=== PATIENT | male | born 1965 | race Caucasian/White ===

== ENCOUNTER 2020-09-26 21:47 | Emergency (ER) | payer OTHER ==
--- NOTE | 2020-09-27 00:05 | CR ---
HISTORY: Pain after softball injury. COMPARISON: None available. FINDINGS: The left hand is examined with PA, lateral, and oblique views. There is no sign of fracture or dislocation. There is moderate diffuse swelling of the hand overlying the metacarpals with no sign of any fracture. There is no sign of radio-opaque foreign body. No degenerative disease is seen. IMPRESSION: No sign of acute osseous injury. Moderate soft tissue swelling overlying the metacarpals with no sign of associated fracture. Dictated by Ariel Dos Santos MD @ 09/27/2020 12:03:[address] Ariel Dos Santos @ Sep 27 2020 12:03AM
--- NOTE | 2020-09-27 00:13 | EDM.PDOC ---
ED HPI GENERAL MEDICAL PROBLEM - General Chief Complaint: Upper Extremity Injury/Pain Stated Complaint: LEFT HAND STRUCK BY A SOFT BALL Time Seen by Provider: 09/26/20 22:18 - History of Present Illness INITIAL COMMENTS - FREE TEXT/NARRATIVE: CHIEF COMPLAINT(S): Hand pain HISTORY OF PRESENT ILLNESS: This is a 54-year-old man without any significant past medical who comes to the emergency department with a chief complaint of story hand pain. The patient states that approximately 2 days ago he was hit by a softball onto his left hand and is experiencing some pain along the index knuckle area. He states that he did not think anything of it and has not tried anything at home. He states that it started to swell and then the whole backside of his hand started to swell. He states that he is experiencing pain particularly on the knuckle of the left index finger. He rates his pain as 4 out of 10 without any radiation. He states that he is able to fully flex and extend all of his fingers on his left hand. He denies any thumb pain. He denies any aggravating factors other than touching it and there are no relieving factors. States that he is mainly concerned about a fracture as he wants to go to [place]. REVIEW OF SYSTEMS: Skin:Denies a rash MSK: Positive for left knuckle pain Neurological: Denies numbness, tingling, weakness PAST MEDICAL HISTORY: As per history of present illness and as reviewed below otherwise noncontributory. SURGICAL HISTORY: As per history of present illness and as reviewed below otherwise noncontributory. SOCIAL HISTORY: As per history of present illness and as reviewed below otherwise noncontributory. FAMILY HISTORY: As per history of present illness and as reviewed below otherwise noncontributory. EXAMINATION OF ORGAN SYSTEMS/BODY AREAS: Constitutional: Blood pressure is 146/86, heart rate 85, respiratory rate 18 with an oxygen saturation 95% on room air. Temperature 36.7 General: Overall well-appearing man who is in no acute distress Psychiatric: Appropriate mood and affect. Eyes: No scleral icterus or conjunctival erythema Cardiovascular: Regular, rate, and rhythm. No gallops, murmurs, or rubs. Bilateral upper extremity pulses symmetric and intact. Respiratory: Lungs clear to auscultation bilaterally. No wheezes, rales, or rhonchi. Musculoskeletal: Normal range of motion. No obvious deformity of the left hand there is swelling to the posterior aspect of the left hand. No anatomical snuffbox tenderness. Patient is able to make an O with his thumb and index finger and able to touch all of his fingers with his thumb. On the left hand Skin: No lesions or abrasions. Neurological: Alert, GCS 15 distal sensation is intact. MEDICAL DECISION MAKING AND COURSE IN THE ED WITH INTERPRETATION/REVIEW OF DIAGNOSTIC STUDIES: This is a 54-year-old man without any significant past medical history who comes to the emergency department with left knuckle pain on the left hand with some dorsal swelling who has full range of motion is neurovas cularly intact. Will obtain a left hand x-ray. At this time I did offer the patient pain medication however he states that he feels fine. No other labs or imaging are indicated. There is no laceration therefore no tetanus will be updated. The radiological images were viewed by myself along with reading the report from the radiologist. Left hand x-ray does not reveal any fracture or dislocation. After imaging I discussed the results with the patient. At this time I did discuss symptomatic treatment at home. He is to follow-up with his primary care physician. He was given strict return precautions. They were amenable to discharge and had no further questions. DISPOSITION: The patient was discharged home in stable condition. The patient will follow up with primary care physician in 3 to 5 days CONDITION: Good PROCEDURES: None FINAL IMPRESSION(S)/DIAGNOSES: 1. Acute left hand soft tissue injury Narayan Pederson M.D. Left Lower Wrist Pain Score (Numeric/FACES): 4 - Related Data Allergies Allergy/AdvReac Type Severity Reaction Status Date / Time No Known Allergies Allergy Verified 09/26/20 23:27 Home Meds: Home Meds Telmisartan 80 mg PO DAILY 09/26/20 [History] hydroCHLOROthiazide [Hydrochlorothiazide] 25 mg PO DAILY 09/26/20 [History] Past Medical History HEENT History: Reports: None Cardiovascular History: Reports: Hypertension Respiratory History: Reports: None Gastrointestinal History: Reports: None Genitourinary History: Reports: Renal Calculus Musculoskeletal History: Reports: None Neurological History: Reports: None Psychiatric History: Reports: None Endocrine/Metabolic History: Reports: None Hematologic History: Reports: None Immunologic History: Reports: None Oncologic (Cancer) History: Reports: None Dermatologic History: Reports: None - Infectious Disease History Infectious Disease History: Reports: Chicken Pox, Measles, Mumps - Past Surgical History Head Surgeries/Procedures: Reports: None HEENT Surgical History: Reports: None Cardiovascular Surgical History: Reports: None Respiratory Surgical History: Reports: None GI Surgical History: Reports: None Male Surgical History: Reports: None Endocrine Surgical History: Reports: None Neurological Surgical History: Reports: None Musculoskeletal Surgical History: Reports: None Oncologic Surgical History: Reports: None Dermatological Surgical History: Reports: None Social & Family History - Family History Family Medical History: No Pertinent Family History - Tobacco Use Tobacco Use Status *Q: Never Tobacco User - Caffeine Use Caffeine Use: Reports: None - Recreational Drug Use Recreational Drug Use: No Review of Systems - Review of Systems Review Of Systems: See Below ED EXAM, GENERAL - Physical Exam Exam: See Below Course - Vital Signs Last Recorded V/S: Last Vital Signs Temp 36.7 C 09/26/20 23:31 Pulse 85 09/26/20 23:31 Resp 18 09/26/20 23:31 BP 146/86 H 09/26/20 23:31 Pulse Ox 95 09/26/20 23:31 Departure - Departure Time of Disposition: 00:12 Disposition: Home, Self-Care 01 Condition: Fair Clinical Impression: Left hand pain - Discharge Information *PRESCRIPTION DRUG MONITORING PROGRAM REVIEWED*: No *COPY OF PRESCRIPTION DRUG MONITORING REPORT IN PATIENT SAURABH: No Instructions: Hand Pain Referrals: Kenny Ross MD [Primary Care Provider] - Forms: ED Department Discharge Additional Instructions: You were evaluated today on an emergent basis. At this time your imaging not reveal any fractures. At this time I do recommend that she use Tylenol and Motrin for pain relief and keep the area elevated and use ice to decrease swelling. If you have any worsening symptoms I would like you to return to the emergency department. Otherwise follow-up with your primary care physician in 3 to 5 days. Please use: Tylenol 500-1000mg every 6 hours (DO NOT TAKE MORE THAN 4000mg in 1 day) Ibuprofen 400mg every 6 hours (Take with food as it can cause ulcers, GI upset) Example schedule: 8:00 AM (Tylenol 500-1000mg) 11:00 AM (Ibuprofen 400mg) 2:00 PM (Tylenol 500-1000mg) 5:00 PM (Ibuprofen 400mg) In addition to Tylenol and Motrin you may use over the counter creams such as Voltaren Cream or Lidocaine Cream (Lidoderm) as needed 4 times a day for symptomatic relief. Ice the area 20 minutes 4 times per day [facility] [address] [place] [address] [facility] [address] [place] [id number] The patient is informed of any results of their evaluation and diagnostic workup and all questions are answered. They are given discharge instructions and return precautions. The patient is stable for discharge. The patient states they understand and agree with the plan and that they will return if their symptoms get worse or if they have any new concerns. The following information is given to patients seen in the emergency department who are being discharged to home. This information is to outline your options for follow-up care. We provide all patients seen in our emergency department with a follow-up referral. The need for follow-up, as well as the timing and circumstances, are variable depending upon the specifics of your emergency department visit. If you don't have a primary care physician on staff, we will provide you with a referral. We always advise you to contact your personal physician following an emergency department visit to inform them of the circumstance of the visit and for follow-up with them and/or the need for any referrals to a consulting specialist. The emergency department will also refer you to a specialist when appropriate. This referral assures that you have the opportunity for follow-up care with a specialist. All of these measure are taken in an effort to provide you with optimal care, which includes your follow-up. Under all circumstances we always encourage you to contact your private physician who remains a resource for coordinating your care. When calling for follow-up care, please make the office aware that this follow-up is from your recent emergency room visit. If for any reason you are refused follow-up, please contact the [facility] Emergency Department at and asked to speak to the emergency department charge nurse. Sepsis Event Note (ED) - Evaluation Sepsis Screening Result: No Definite Risk
== END 2020-09-27 00:34 | disposition home or self-care (01) ==
LOC: MW.ED 21:47
DX: S69.92XA Unspecified injury of left wrist, hand and finger(s), initial encounter (principal); I10 Essential (primary) hypertension; Z79.899 Other long term (current) drug therapy; W21.07XA Struck by softball, initial encounter
CPT/HCPCS: 73130-26-LT; 73130-LT; 99283